=== PATIENT | female | born 1955 | race Caucasian/White ===

== ENCOUNTER → 2016-06-09 | Outpatient (CLI) | payer BC ==
[2015-12-21 08:16] VITALS: BP 140/71
[~2016-06-09] MED LIST: CALC500T50 PO; MULT1TAB49 PO; OMEG1CAP6 PO; SIMV20TA3 PO; SPIR25TA3 PO
--- NOTE | 2016-06-09 17:10 | KCIC ---
Diagnostic digital mammograms right breast: Reason for examination: Followup biopsy. COMPARISON Comparison is made to previous study dated 12/05/2015. FINDINGS Breast density category B. The skin and nipple show no abnormalities. No abnormal lymph nodes are seen in the axilla. The breast parenchyma shows scattered fibroglandular density. Biopsy clip is now present at the 9:30 position of the right breast and the area of mammographic concern appears to be less prominent. There are no new dominant masses, suspicious calcifications or architectural distortions. IMPRESSION Post biopsy changes in the 9:30 position of the right breast. Ultrasound to follow. This study was interpreted with the benefit of Computerized Aided Detection (CAD). Mammography is not 100% sensitive in detecting breast cancer. Therefore, a self breast exam and a clinical breast exam are very important. A negative mammogram does not negate a clinically suspicious finding and should not result in a delay in biopsying a clinically suspicious abnormality. BI-RADS category 0: Incomplete. Ultrasound to follow. Right breast ultrasound: Comparison is made to previous study dated 12/14/2015. There are postop biopsy changes at the 9 o'clock position 9 centimeters from the nipple with biopsy clip present and there nodularity appears to be less defined post biopsy. No new cystic or solid nodules are seen. Impression: Post biopsy changes at the 9 o'clock position. No new lesions seen. Recommend routine mammographic followup. BI-RADS category 2: Benign. This patient's information has been entered into a reminder system for the patient to be notified with the results of this examination and a target date for her next mammograms. Electronically signed by: Giselle Sanchez MD (Jun 09, 2016 17:08:02)
== END | disposition home or self-care (01) ==
LOC: KCIC MAMMO 11:38
PROVIDERS: ATTEND Internal Medicine
DX: R92.8 Other abnormal and inconclusive findings on diagnostic imaging of breast (principal)
CPT/HCPCS: 76641; G0206; 77065

== ENCOUNTER 2016-09-24 06:03 | Day surgery (SDC) | payer BC ==
[~2016-09-24] VITALS: Ht 162.6 cm; Wt 81.2 kg
[~2016-09-24 06:03] MED LIST changes: -CALC500T50 PO; +CALC500T54 PO
[2016-09-24] MEDS ORDERED: LIDOCAINE 1% 20 ML VIAL. ONE (06:59)
[2016-09-24] MEDS ORDERED: BUPIVACAINE 0.5% 50 ML VIAL. ONE (06:59)
[2016-09-24] MEDS ORDERED: fentaNYL PF VIAL 100 MCG/2 ML VIAL IV PRN (07:00)
[2016-09-24] MEDS ORDERED: MORPHINE SULFATE 2 MG/ML DISP.SYRIN. IV PRN (07:00)
[2016-09-24] MEDS ORDERED: PROCHLORPERAZINE 10 MG/2 ML VIAL. IV PRN (07:00)
[2016-09-24] MEDS ORDERED: LIDOCAINE 1% 1 ML SYRINGE. ID PRN (07:00)
[2016-09-24] MEDS ORDERED: IV RINGERS,LACTATED 1000ML 1,000 ML IV SCH (07:00)
[2016-09-24] MEDS ORDERED: HYDROmorphone 2 MG/ML VIAL IV PRN (07:00)
[2016-09-24] MEDS ORDERED: ONDANSETRON PF 4 MG/2 ML VIAL. IV PRN (07:00)
[2016-09-24] MEDS ORDERED: ONDANSETRON PF 4 MG/2 ML VIAL. ONE (07:04)
[2016-09-24] MEDS ORDERED: LIDOCAINE 2% PF Vial for OR 5 ML VIAL. ONE (07:04)
[2016-09-24] MEDS ORDERED: DEXAMETHASONE SOD PHOS 20 MG/5 ML VIAL. ONE (07:04)
[2016-09-24] MEDS ORDERED: PROPOFOL 20 ML IV ONE (07:04)
[2016-09-24] MEDS ORDERED: fentaNYL PF VIAL 100 MCG/2 ML VIAL ONE (07:05)
[2016-09-24] MEDS ORDERED: SEVOFLURANE UP TO 15 MINUTES. IH ONE (07:05)
[2016-09-24] MEDS ORDERED: MIDAZOLAM HCL/PF 2 MG/2 ML VIAL. ONE (07:05)
[2016-09-24] MEDS ORDERED: SPIR25TA PO (07:11)
[2016-09-24] MEDS ORDERED: OMEP20CA9 PO (07:12)
--- NOTE | 2016-09-24 07:49 | DISCH ---
DISCHARGE INSTRUCTIONS Condition on Discharge Condition on Discharge: Stable Activity After Discharge Activity Instructions for Disc: Other, see below Bathing Instructions: Shower-keep dressing dry Lifting Instructions after Dis: No heavy lifting, No pulling or pushing Weight Bearing Status after Di: As tolerated Diet after Discharge Diet after Discharge: Regular Wound Incision Care Wound/Incision Care: Ice to area for comfort, Keep wound/cast CDI, Keep wound elevated Other wound/incision instructi: ok to change dressing in 1 wk, keep incision covered w/ clean, dry dressing Contacting the DRMustapha after DC Call your doctor for: Concerns you may have Follow-Up Follow up with: Angel in 2wks DANA GRANDE II, MD Sep 24, 2016 07:49
--- NOTE | 2016-09-24 07:50 | PDOC ---
BRIEF OPERATIVE NOTE Date: Sep 24, 2016 Pre-Op Diagnosis R trigger thumb Post-Op Diagnosis same Procedure Performed open R trigger thumb release Surgeon Angel Anesthesiologist Rui Anesthesia Type: General Blood Loss 5mL Complications none DANA GRANDE II, MD Sep 24, 2016 07:50
[2016-09-24] MEDS: fentaNYL PF VIAL 100 MCG/2 ML VIAL IV PRN ×2 (08:12→08:26)
[2016-09-24] MEDS ORDERED: HYDR-971 PO (08:19)
[2016-09-24] MEDS ORDERED: HYDROcodone/APAP 5/325MG 1 TAB TABLET PO ONE (08:30)
--- NOTE | 2016-09-24 08:42 | OP ---
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 PREOPERATIVE DIAGNOSIS: Right trigger thumb. POSTOPERATIVE DIAGNOSIS: Right trigger thumb. PROCEDURE PERFORMED: Open right trigger thumb release. TOURNIQUET TIME: 10 minutes. ANESTHESIA: General. COMPLICATIONS: None. ESTIMATED BLOOD LOSS: 5 mL. REASON FOR PROCEDURE: The patient is a very pleasant 61-year-old female who has had painful catching and some occasional locking episodes at her right thumb for some time. We had discussed conservative therapies and had tried a steroid injection, which gave her some good initial, however, short term relief. We therefore had a discussion of the risks, benefits, alternatives of proceeding with the above surgery and she elected to proceed. DESCRIPTION OF PROCEDURE: The patient was greeted in the preoperative area where the correct digit was marked and identified. She was taken back to the operative suite and antibiotics were started en route. Once in the OR, she was transferred gently supine to the OR table and secured to the bed with all pressure points padded and had successful induction of general anesthesia. We then proceeded to prep and drape the right upper extremity in usual sterile fashion after applying a nonsterile tourniquet to her right arm. We then conducted a standard preoperative timeout. I then palpated and felt for her flexor tendon and the nodule, and then made an incision in the proximal thumb crease and incised skin with a scalpel. I used bipolar cautery to cauterize a couple of bleeders. I then used a mosquito to dissect through the subcutaneous tissue. I identified a digital nerve at the radial border of the flexor tendon and used a Ragnell to protect this. I then continued with my mosquito dissection, identified the A1 cesar and then used a Ragnell over this to expose this as well. I then incised the A1 cesar in its mid portion with the tenotomy scissors. I then took her thumb through range of motion and noted no impingement of the nodule. After this, the retractors were removed and the wound was irrigated out with sterile normal saline and then I closed the skin with 2 simple interrupted 3-0 nylon. We then placed Xeroform, sterile gauze, sterile cast padding and an Ferny wrap in a soft thumb spica splint fashion to her operative extremity. The tourniquet was then let down. She was awaked from anesthesia. She tolerated the surgery well. There were no complications. Prior to completion of wound closure, all counts were reported correct x 2. Postop plan is for her to avoid lifting anything with her right upper extremity. We will see her back in 2 weeks, sooner should problems arise. NABOR GRANDE MD DR: VEE/griselda JOB#: [id number] / [id number] ELYSSA
[2016-09-24 09:00] VITALS: BP 124/64
== END 2016-09-24 09:08 | disposition home or self-care (01) ==
LOC: SURG 06:03
PROVIDERS: ATTEND Orthopaedic Surgery Sports Medicine
DX: M65.311 Trigger thumb, right thumb (principal); E78.00 Pure hypercholesterolemia, unspecified; I10 Essential (primary) hypertension; K21.9 Gastro-esophageal reflux disease without esophagitis; Z72.89 Other problems related to lifestyle; Z87.39 Personal history of other diseases of the musculoskeletal system and connective tissue
CPT/HCPCS: 26055; A4215; J0690; J1100; J2250; J2405; J2704; J3010; J3490; J7120

== ENCOUNTER → 2016-12-05 | Outpatient (CLI) | payer BC ==
[~2016-12-05] MED LIST changes: +HYDR-971 PO; +OMEP20CA9 PO; +SPIR25TA PO
--- NOTE | 2016-12-05 09:05 | KCIC ---
Bone mineral density exam History: Osteopenia, loss of height, takes calcium supplement Comparison: 12/13/2013 Findings: Bone mineral density examination utilizing DEXA was performed. Left hip bone mineral density of 0.820 g/cm2 corresponds with a T score -1.0, Z score -0.1. Comparing the left hip, there has been -7.3% decrease. The bone mineral density of the lumbar spine was 0.931 g/cm2 which corresponds with a T-score of -1.1, Z score 0.3. Comparing the lumbar spine, there has been -3.7% decrease. By [employer] on Osteoporosis criteria, a T score of 0 to-1 SD is considered to be within normal limits. A T score of -1 to -2.5 SD is considered osteopenia. A T score less than -2.5 SD is considered osteoporosis Impression: 1. There is osteopenia of the lumbar spine. There is normal bone density although borderline osteopenia of the left hip. Electronically signed by: Aleks Mohr MD (12/05/2016 9:02 AM) [email or web address]
--- NOTE | 2016-12-06 08:00 | RAD ---
DATE: 12/06/2016 EXAM: MAMMO YULY SCREENING BILATERAL HISTORY: 61-year-old female for routine screening. History of right breast biopsy with benign pathology. COMPARISON: Previous mammograms from 2017, 2016 and 2014 This study was interpreted with the benefit of Computerized Aided Detection (CAD). FINDINGS: Breast Density: SCATTERED The breast parenchyma shows scattered fibroglandular densities. Breast parenchyma level B. Multiple round masses are seen in the right breast, stable dating back to 2014 mammogram. Postbiopsy changes are seen in the outer quadrant of the right breast at 9:00 position. Benign bilateral calcifications. No suspicious calcifications, architectural distortion or spiculated mass. IMPRESSION: Post biopsy changes in the right outer breast. No mammographic evidence of malignancy. Stable mammogram. BI-RADS CATEGORY: 2 BENIGN FINDING(S) RECOMMENDED FOLLOW-UP: 12M 12 MONTH FOLLOW-UP PQRS compliance statement: Patient information was entered into a reminder system with a target due date 12/06/2017 for the next mammogram. Mammography is a sensitive method for finding small breast cancers, but it does not detect them all and is not a substitute for careful clinical examination. A negative mammogram does not negate a clinically suspicious finding and should not result in delay in biopsying a clinically suspicious abnormality. "Our facility is accredited by the [employer] Mammography Program."
== END | disposition home or self-care (01) ==
LOC: KCIC DEXA 08:13
PROVIDERS: ATTEND Internal Medicine
DX: Z12.31 Encounter for screening mammogram for malignant neoplasm of breast (principal); N95.9 Unspecified menopausal and perimenopausal disorder; M85.88 Other specified disorders of bone density and structure, other site
CPT/HCPCS: 77063; 77080; G0202; 77067

== ENCOUNTER → 2018-01-22 | Outpatient (CLI) | payer BC ==
[~2018-01-22] MED LIST changes: -SPIR25TA3 PO; +SPIR25TA5 PO
--- NOTE | 2018-01-22 12:46 | KCIC ---
EXAM: Bilateral digital screening mammogram with tomosynthesis. HISTORY: 62-year-old female presents for screening mammography. TECHNIQUE: Full-field digital craniocaudal and mediolateral oblique 2D and 3D tomosynthesis images of both breasts are obtained for evaluation. Computer aided detection with TribridgeD software version 9.3 was applied. COMPARISON: 12/05/2016 and 06/09/2016 BREAST PARENCHYMAL DENSITY: Level B - Scattered fibroglandular densities. FINDINGS: There are small nodular densities within both breasts which are more conspicuous compared to the prior study, pronounced within the medial and lateral right breast and retroareolar left breast. There is no suspicious calcification or distortion within either breast. IMPRESSION: BI-RADS Category 0: Additional imaging needed. RECOMMENDATION: Further evaluation with bilateral breast sonogram is recommended to assess areas of increasing nodularity. If your mammogram demonstrates that you have dense breast tissue, which could hide abnormalities, and if you have other risk factors for breast cancer that have been identified, you might benefit from supplemental screening tests that may be suggested by your ordering physician. Dense breast tissue, in and of itself, is a relatively common condition. This information is not provided to cause undue concern, but rather to raise your awareness and to promote discussion with your physician regarding the presence of other risk factors, in addition to dense breast tissue. A report of your mammography results will be sent to you and your physician. You should contact your physician if you have any questions or concerns regarding this report. Mammography is a sensitive method for finding small breast cancers, but it does not detect them all and is not a substitute for careful clinical examination. A negative mammogram does not negate a clinically suspicious finding and should not result in delay in biopsying a clinically suspicious abnormality. PQRS compliance statement - Patient information was entered into a reminder system with a target due date for the next mammogram. "Our facility is accredited by the [employer] Mammography Program." Electronically signed by: Angélica Andino MD (01/22/2018 12:43 PM) [facility]
== END | disposition home or self-care (01) ==
LOC: KCIC MAMMO 11:31
PROVIDERS: ATTEND Internal Medicine
DX: Z12.31 Encounter for screening mammogram for malignant neoplasm of breast (principal)
CPT/HCPCS: 77063; 77067

== ENCOUNTER → 2018-02-12 | Outpatient (CLI) | payer BC ==
[~2018-02-12] MED LIST changes: +HYDR-3164 PO; -HYDR-971 PO
--- NOTE | 2018-02-12 09:01 | KCIC ---
EXAM: Bilateral breast sonogram. HISTORY: 62-year-old female presents for evaluation of nodularity within both breasts demonstrated on a mammogram dated 01/22/2018. TECHNIQUE: Sonographic imaging of both breasts including all 4 quadrants and the retroareolar lesion was performed. COMPARISON: 01/22/2018. FINDINGS: Sonographic imaging of the right breast demonstrates an 8.6 mm hypoechoic lesion with internal echoes at the 2:30 position 4 cm from the nipple, the appearance of which favors a complicated cyst or benign fibrocystic lesion. This demonstrates no blood flow or posterior shadowing. There is a partially circumscribed hypoechoic lesion at the 10:00 position 4 cm from the nipple measuring 9.5 mm. There is an adjacent biopsy clip. There is a biopsy clip within this location. Sonographic imaging of the left breast demonstrates no suspicious finding. There are few tiny focally dilated ducts. IMPRESSION: 1. 8.6 mm suspected complicated cyst or benign fibrocystic lesion at the 2:30 position of the right breast. 2. 9.5 mm partially circumscribed hypoechoic lesion with associated biopsy clip at the 10:00 position of the right breast. Given the presence of a biopsy clip in this location, this likely corresponds with the lesion of concern demonstrated on a prior sonogram dated 12/14/2015 at the 9:00 position. The differences in position or due to differences in imaging technique. 3. No suspicious finding within the left breast. 4. BI-RADS Category 3: Probably benign finding(s). Short term follow up with a diagnostic bilateral breast mammogram] breast sonogram in 6 months is recommended to confirm stability. Electronically signed by: Angélica Andino MD (02/12/2018 8:58 AM) [facility]
== END | disposition home or self-care (01) ==
LOC: KCIC US 07:53
PROVIDERS: ATTEND Internal Medicine
DX: N64.89 Other specified disorders of breast (principal)
CPT/HCPCS: 76641

== ENCOUNTER → 2018-08-12 | Outpatient (CLI) | payer BC ==
[~2018-08-12] MED LIST changes: +OMEP20CA10 PO; -OMEP20CA9 PO
--- NOTE | 2018-08-12 15:13 | KCIC ---
Bilateral diagnostic digital mammograms with 3-D tomosynthesis: Reason for examination: Follow-up nodules. Comparison is made to previous studies dated 01/22/2018 and 12/05/2016. Bilateral mammograms in CC and oblique projections were obtained with 2-D imaging and 3-D tomosynthesis imaging on a Siemens Inspiration unit and reviewed on the workstation. Interpretation was made with the benefit of CAD. The skin and nipples show no abnormalities. No abnormal axillary lymph nodes are seen. The breast parenchyma shows scattered fatty and fibroglandular density. (Breast density: Category B.) There continues be a small nodular density in the 10:00 position anteriorly in the right breast. There are also however additional small nodules at approximately the 12:00 and 2:00 positions in the right breast. There also appears to be some nodularity laterally in the left breast probably around the 3:00 B position. Further evaluation with ultrasound will follow. There are no suspicious calcifications. Impression: Small nodules bilaterally. Ultrasound to follow. BI-RADS Category 0: Incomplete. Needs additional imaging evaluation. Bilateral breast ultrasound: Comparison is made to previous study dated 02/12/2018. Bilateral whole breast ultrasound including evaluation of all 4 quadrants and the retroareolar and axillary regions of both breasts was performed. There continues to be 9 mm hypoechoic fibrocystic lesion at the 2:30 position 4 cm from the nipple which shows no significant change. There continues to be 6.9 mm cyst in the 10:00 position 4 cm from the nipple. There is a small 3.9 mm fibrocystic type lesion at the 12:30 position 4 cm from the nipple. No other cystic or solid lesions are seen. No abnormal appearing lymph nodes are seen in the axilla. In the left breast, there is a small cystic-appearing lesion in the 4:00 position 8 cm from the nipple measuring 8.8 mm in size. No other cystic or solid lesions are seen. No abnormal appearing lymph nodes are seen in the axilla. IMPRESSION: Continued presence of benign appearing cystic and fibrocystic type lesions bilaterally. No suspicious-appearing lesion seen. Recommend reevaluation with ultrasound in 6 months. BI-RADS Category 3: Probably Benign. "Our facility is accredited by the [employer] Mammography Program." This patient's information has been entered into a reminder system for the patient to be notified with the results of her examination and a target date for the next mammogram. Electronically signed by: Mary Sanchez MD (08/12/2018 3:11 PM) [facility]
== END | disposition home or self-care (01) ==
LOC: KCIC MAMMO 12:56
PROVIDERS: ATTEND Internal Medicine
DX: N63.12 Unspecified lump in the right breast, upper inner quadrant (principal); N63.20 Unspecified lump in the left breast, unspecified quadrant
CPT/HCPCS: 76641; 77066; G0279; 77062

== ENCOUNTER → 2019-02-14 | Outpatient (CLI) | payer BC ==
[~2019-02-14] MED LIST changes: +SIMV20TA18 PO; -SIMV20TA3 PO
--- NOTE | 2019-02-14 08:39 | KCIC ---
Bilateral breast ultrasound: Reason for examination: Follow-up nodules. Comparison is made to previous studies dated 08/12/2018 and 02/12/2018. Bilateral breast ultrasound including evaluation of the retroareolar and axillary regions of both breasts was performed. In the right breast at the 2:30 position 4 cm from the nipple, there continues to be 9.7 mm fibrocystic lesion. In the 10:00 position 4 cm from the nipple, there is a 9 mm circumscribed nodule probably representing a complicated cyst. In the 12:30 position 4 cm from the nipple, there is a small 3.6 mm fibrocystic lesion. These nodules show no significant change. No abnormal appearing lymph nodes are seen in the axilla. The left breast shows no discrete cystic or solid nodules. No abnormal appearing lymph nodes are seen in the left axilla. IMPRESSION: No significant change in small nodules in the right breast. No focal lesions in the left breast. Recommend routine mammographic follow-up. BI-RADS Category 2: Benign. "Our facility is accredited by the [employer] Mammography Program." This patient's information has been entered into a reminder system for the patient to be notified with the results of her examination and a target date for the next mammogram. Electronically signed by: Mary Sanchez MD (02/14/2019 8:36 AM) [facility]
== END | disposition home or self-care (01) ==
LOC: KCIC US 07:54
PROVIDERS: ATTEND Internal Medicine
DX: N63.11 Unspecified lump in the right breast, upper outer quadrant (principal); N64.89 Other specified disorders of breast
CPT/HCPCS: 76641

== ENCOUNTER → 2019-10-10 | Outpatient (CLI) | payer BC ==
[~2019-10-10] MED LIST changes: -OMEP20CA10 PO; +OMEP20CA16 PO
--- NOTE | 2019-10-10 17:23 | KCIC ---
Bilateral digital screening mammograms with 3-D tomosynthesis: Reason for examination: Routine screening. Comparison is made to previous studies dated back to 12/05/2015. Bilateral mammograms in CC and oblique projections were obtained with 2-D imaging and 3-D tomosynthesis imaging on a Siemens Inspiration unit and reviewed on the workstation. Interpretation was made with the benefit of CAD. The skin and nipples show no abnormalities. No abnormal axillary lymph nodes are seen. The breast parenchyma shows scattered fatty and fibroglandular density. (Breast density: Category B.) There are small benign-appearing nodules bilaterally which are stable. There are no new dominant masses, suspicious calcifications or architectural distortion. Impression: No evidence of malignancy. Recommend routine screening. BI-RAD Category 2: Benign. "Our facility is accredited by the [employer] Mammography Program." This patient's information has been entered into a reminder system for the patient to be notified with the results of her examination and a target date for the next mammogram. Electronically signed by: Mary Sanchez MD (10/10/2019 5:20 PM) [email or web address]
== END | disposition home or self-care (01) ==
LOC: KCIC MAMMO 15:33
PROVIDERS: ATTEND Internal Medicine
DX: Z12.31 Encounter for screening mammogram for malignant neoplasm of breast (principal)
CPT/HCPCS: 77063; 77067

== ENCOUNTER → 2020-10-12 | Outpatient (CLI) | payer BC ==
[~2020-10-12] MED LIST changes: -MULT1TAB49 PO; +MULT1TAB50 PO
--- NOTE | 2020-10-12 16:46 | KCIC ---
Bilateral digital screening mammograms with 3-D tomosynthesis: Reason for examination: Routine screening. Comparison is made to previous studies dated back to 12/04/2014. Bilateral mammograms in CC and oblique projections were obtained with 2-D imaging and 3-D tomosynthes is imaging on a Siemens Inspiration unit and reviewed on the workstation. Interpretation was made wit h the benefit of CAD. The skin and nipples show no abnormalities. No abnormal axillary lymph nodes are seen. The breast par enchyma shows scattered fatty and fibroglandular density. (Breast density: Category B.) There continu e to be small nodular parenchymal densities bilaterally which are stable. There are no new dominant m asses, suspicious calcifications or architectural distortion. Benign calcifications are present. Biop sy clip remains present on the right. Impression: No evidence of malignancy. Recommend routine screening. BI-RAD Category 2: Benign. "Our facility is accredited by the [employer] Mammography Program." This patient's information has been entered into a reminder system for the patient to be notified wit h the results of her examination and a target date for the next mammogram. Electronically signed by: Mary Sanchez MD (10/12/2020 4:43 PM) [email or web address]
== END ==
LOC: KCIC MAMMO 13:51
PROVIDERS: ATTEND Internal Medicine
DX: Z12.31 Encounter for screening mammogram for malignant neoplasm of breast (principal)
CPT/HCPCS: 77063; 77067

== ENCOUNTER → 2020-12-24 | Outpatient (CLI) | payer BC ==
[~2020-12-24] MED LIST changes: +METF500T16 PO; +TRAM50TA PO; +WARF2TAB96 PO
[2020-12-24 08:48] LABS: BASO # 0.1 x10^3/uL (0.0-0.2); BASO % 1 % (0-3); EOS # 0.1 x10^3/uL (0.0-0.7); EOS % 1 % (0-3); HEMATOCRIT 38.8 % (36.0-47.0); HEMOGLOBIN 13.2 g/dL (12.0-15.5); LYMPH # 2.1 x10^3/uL (1.0-4.8); LYMPH % 25 % (24-48); MEAN CORPUSCULAR HEMOGLOBIN 31 pg (25-35); MEAN CORPUSCULAR HGB CONC 34 g/dL (31-37); MEAN CORPUSCULAR VOLUME 91 fL (79-100); MONO # 0.5 x10^3/uL (0.0-1.1); MONO % 6 % (0-9); NEUT # 5.7 x10^3/uL (1.8-7.7); NEUT % 68 % (31-73); PLATELET COUNT 324 x10^3/uL (140-400); RED BLOOD COUNT 4.27 x10^6/uL (3.50-5.40); RED CELL DISTRIBUTION WIDTH 13.3 % (11.5-14.5); WHITE BLOOD COUNT 8.3 x10^3/uL (4.0-11.0)
[2020-12-24 08:57] LABS: ALBUMIN 3.8 g/dL (3.4-5.0); CALCIUM 9.4 mg/dL (8.5-10.1); CREATININE 0.9 mg/dL (0.6-1.0); GFR 63.2; POTASSIUM 4.3 mmol/L (3.5-5.1)
[2020-12-24 08:59] LABS: PROTHROMBIN TIME PATIENT 12.9 SEC (11.7-14.0)
--- NOTE | 2020-12-24 11:51 | EKG ---
[facility] [address] [place] [address] Test Date: 2020-12-24 Test Time: 11:48:52 Pat Name: MAXIMO SCHERER Department: Room: Gender: F [employer] Admissions Representative: MAHESH : 1955 Requested By: DAGOBERTO DENNEY Order Number: [id number] Reading MD: Joselito Martinez Measurements Intervals [place] Rate: 69 P: 37 NE: 154 QRS: 14 QRSD: 74 T: 30 QT: 368 QTc: 396 Interpretive Statements SINUS RHYTHM Electronically Signed On 12-25-2020 13:00:10 CDT by Joselito Martinez
--- NOTE | 2020-12-24 12:18 | RAD ---
EXAM: Chest, 2 views. HISTORY: Hypertension. COMPARISON: None. FINDINGS: 2 views of the chest are obtained. There is no infiltrate, pleural effusion or pneumothorax . The heart is normal in size. IMPRESSION: No acute pulmonary finding. Electronically signed by: Angélica Andino MD (12/24/2020 12:16 PM) [id number]
[2020-12-25 01:11] LABS: HEMOGLOBIN A1C 6.4 % (4.8-5.6)
== END ==
LOC: SURGPAT 12:03
PROVIDERS: ATTEND Orthopaedic Surgery
DX: Z01.818 Encounter for other preprocedural examination (principal); M17.12 Unilateral primary osteoarthritis, left knee
CPT/HCPCS: 36415; 71046; 80048; 82040; 82306; 83036; 85025; 85610; 85651; 85730; 87641; 93005

== ENCOUNTER 2021-01-08 07:37 | Observation (INO) | payer BC ==
[2020-12-26 11:42] VITALS: BP 146/85
[2021-01-08] VITALS (9 sets, daily range): BP systolic 107–135; BP diastolic 53–67
[~2021-01-08] VITALS: Ht 162.6 cm; Wt 86.3 kg
[~2021-01-08 07:37] MED LIST changes: +ACETAMINOPHEN 500 MG TABLET PO PRN; +GABAPENTIN 300 MG CAPSULE. PO ONE; +HYDROmorphone 2 MG/ML VIAL IVP PRN; +IV RINGERS,LACTATED 1000ML 1,000 ML IV SCH; +MELOXICAM 7.5 MG TABLET PO ONE; -METF500T16 PO; +MORPHINE SULFATE 2 MG/ML INJ. IVP PRN; +MORPHINE SULFATE 5 MG, KETOROLAC 30MG VIAL 30 MG, ROPIVacaine 0.5% PF 60 ML, EPINEPHrin... INT ART ONE; +PROCHLORPERAZINE 10 MG/2 ML VIAL. IVP PRN; -TRAM50TA PO; +TRANEXAMIC ACID in NS IVPB 50 ML INJ ONE; -WARF2TAB96 PO; +fentaNYL PF VIAL 100 MCG/2 ML VIAL IVP PRN
[2021-01-08] MEDS ORDERED: TRANEXAMIC ACID in NS IVPB 50 ML INJ ONE (08:00)
[2021-01-08] MEDS ORDERED: PROPOFOL 10 MG/ML (20ML) VIAL. IV ONE ×2 (08:03→09:42)
[2021-01-08] MEDS ORDERED: METF500T16 PO (08:03)
[2021-01-08] MEDS ORDERED: LIDOCAINE 2% PF 5 ML VIAL. ONE (08:03)
[2021-01-08] MEDS ORDERED: ONDANSETRON PF 4 MG/2 ML VIAL. ONE (08:05)
[2021-01-08] MEDS ORDERED: DEXAMETHASONE SOD PHOS 4 MG/ML VIAL ONE (08:05)
[2021-01-08] MEDS ORDERED: HYDROmorphone 2 MG/ML VIAL ONE (08:06)
[2021-01-08] MEDS ORDERED: TRANEXAMIC ACID in NS IVPB 50 ML ONE ×2 (08:06→08:07)
[2021-01-08] MEDS ORDERED: VANCOMYCIN 1 GM VIAL. ONE ×2 (08:06→08:07)
[2021-01-08] MEDS ORDERED: MORPHINE SULFATE 2 MG/ML INJ. IVP PRN (08:15)
[2021-01-08] MEDS ORDERED: ZOLPIDEM 5 MG TABLET. PO PRN (08:15)
[2021-01-08] MEDS ORDERED: diphenhydrAMINE 50 MG/ML VIAL IVP PRN (08:15)
[2021-01-08] MEDS ORDERED: SCOPOLAMINE 1.5MG PATCH. TD ONE (08:15)
[2021-01-08] MEDS ORDERED: INSULIN LISPRO 100 UNIT/ML 3ML VIAL for OP,RR ONLY. SQ PRN (08:15)
[2021-01-08] MEDS ORDERED: CALCIUM CARBONATE 500 MG TAB.CHEW PO PRN (08:15)
[2021-01-08] MEDS ORDERED: oxyCODONE IR 5 MG TABLET PO PRN (08:15)
[2021-01-08] MEDS ORDERED: PROCHLORPERAZINE 5 MG TABLET. PO PRN (08:15)
[2021-01-08] MEDS ORDERED: IV NORMAL SALINE 1000ML BAG 1,000 ML IV SCH (08:15)
[2021-01-08] MEDS ORDERED: 0.9 % SODIUM CHLORIDE 10 ML DISP.SYRIN. IV PRN (08:15)
[2021-01-08] MEDS ORDERED: DEXTROSE 50% 25 GM / 50ML DISP.SYRIN. IV PRN (08:15)
[2021-01-08] MEDS ORDERED: fentaNYL PF VIAL 100 MCG/2 ML VIAL IVP PRN (08:15)
--- NOTE | 2021-01-08 08:16 | PREOP HP ---
DATE OF SERVICE: 01/08/2021 PREOPERATIVE HISTORY AND PHYSICAL CHIEF COMPLAINT: Left knee pain, degenerative disease. HISTORY OF PRESENT ILLNESS: The patient is a 65-year-old female that has undergone longstanding nonoperative treatment for degenerative joint disease of the left knee. She is very limited on her activities of daily living, worse on startup and with increased activities. She had no relief with previous corticosteroid injections and is unable to take anti-inflammatories. PAST MEDICAL HISTORY: Significant for hypertension, depression, reflux disease, hyperlipidemia. PAST SURGICAL HISTORY: Trigger finger and ear surgeries. FAMILY HISTORY: Father of heart disease. Mother is alive and healthy. Some hypertension in other family members. SOCIAL HISTORY: Denies smoking or drug use. Social alcohol use. Lives with her spouse. MEDICATIONS: List is reviewed. ALLERGIES: She has no known drug allergies ASIDE FROM THE SENSITIVITY TO NONSTEROIDALS. REVIEW OF SYSTEMS: She denies any chest pain, shortness of breath, fever, chills or other constitutional symptoms or new medical issues since her last evaluation. PHYSICAL EXAMINATION: VITAL SIGNS: Per admission sheet. HEENT: Atraumatic, normocephalic. HEART: Regular rate and rhythm. LUNGS: Clear to auscultation bilaterally. ABDOMEN: Benign. EXTREMITIES: Examination of the left knee, she has medial joint line tenderness, varus and medial collateral ligament pseudolaxity with no ligamentous instability. She has mild patellofemoral crepitus and normal examination of the contralateral knee with slight patellofemoral crepitus. Normal alignment, stability, bilateral hips and ankles with intact motor function, distal pulses, sensation, reflexes, skin in both lower extremities throughout. DIAGNOSTIC DATA: X-rays show well maintained joint spaces on the right knee, severe medial compartment narrowing with nearly bone on bone on the left and a varus deformity. IMPRESSION: Primary osteoarthritis, left knee. TREATMENT PLAN: She has failed nonoperative alternatives and has severe limitations of her activities of daily living. We had talked through risks, benefits, postoperative course of total knee arthroplasty including the possibility of infection, nerve or blood vessel damage, medical or other anesthetic complications among others and she does wish to proceed with surgical evaluation and treatment which will include [facility] observation to follow. BARB DR: Fiona TID: [id number]
[2021-01-08 08:32] LABS: PROTHROMBIN TIME PATIENT 12.4 SEC (11.7-14.0)
[2021-01-08] MEDS ORDERED: SEVOFLURANE 61 TO 120 MINUTES. IH ONE (09:50)
[2021-01-08] MEDS: SENNOSIDES/DOCUSATE 8.6/50MG TABLET. PO SCH (10:00)
[2021-01-08] MEDS: MULTIVITAMIN with MINERAL TABLET. PO SCH (10:00)
[2021-01-08] MEDS ORDERED: INSULIN LISPRO 100 UNIT/ML 3ML VIAL for OP,RR ONLY. SQ ONE (11:40)
[2021-01-08] MEDS: ONDANSETRON PF 4 MG/2 ML VIAL. IVP SCH ×2 (12:00→17:50)
[2021-01-08] MEDS: ONDANSETRON ODT 4 MG TAB.RAPDIS. PO SCH ×2 (12:00→17:47)
--- NOTE | 2021-01-08 12:51 | RAD ---
XR KNEE_LT 1-2 VIEWS History: Postop Comparison: 06/29/2020 Technique: Portable AP and crosstable lateral views the left knee. FINDINGS/ IMPRESSION: Postsurgical features from left total knee arthroplasty. Distal femur and proximal tibial components appear well seated. Alignment is anatomic. No fractures identified. There is expected sub cutaneous air and edema. Electronically signed by: Brenton Ramirez MD (01/08/2021 12:49 PM) [id number]
--- NOTE | 2021-01-08 15:38 | PDOC4 ---
Operative Note Operative Note Date of surgery: 01/08/2021 Preoperative diagnosis: Degenerative arthritis left knee Postoperative diagnosis: Same Operative procedure: Left total knee arthroplasty Surgeon: Bernice Assist: Graham rand Anesthesia: General Estimated blood loss: 15 cc Complications: None Specimens: Cartilage surfaces to pathology Operative indications: Please see my dictated preoperative history and physical for detailed operative indications and note that we had reviewed preoperatively risks benefits postoperative course of the surgery including the possibility of infection continued pain nerve or blood vessel damage premature wear or loosening instability medical or other anesthetic complications among others and she agrees to proceed with surgical evaluation and treatment having given informed consent Operative text: Patient was identified procedure verified patient placed in the supine position on the operating table. After adequate amounts of general anesthesia were administered the left lower extremity was prepped and draped in standard sterile fashion with a thigh tourniquet and after timeout was performed patient procedure identified and verified the left lower extremity was exsanguin ated by Esmarch bandage tourniquet inflated to 300 mmHg and a midline incision was made followed by a medial parapatellar approach fat pad was excised and patella everted and the distal femur drilled to accommodate the intramedullary cutting guide which was set at 5 degrees with standard distal cut. A tibial cut was made using the extra medullary cutting guide aligned with the second toe and alignment verified. Balancing was confirmed with the drop kenny and noted in both flexion and extension, tibia was prepared with a size C persona trial component. Femur was sized at a size 4 and AP lateral chamfer cuts were made and ligament balancing carried out. A medial release was carried out and I did achieve excellent stability with a 11 mm trial medial congruent articular surface spacer. Femoral lug holes were drilled and patella was not resurfaced. She had excellent tracking. Trial components were removed thorough irrigation carried out with normal saline solution and the following persona components were cemented in place with polymethylmethacrylate cement: A size C persona natural tibial component and size 4 standard right persona cruciate retaining femur. Excess cement was removed with a curette and a vitamin E medial congruent 11 mm height articular spacer was locked into place and the knee held into extension until cement was dry. Irrigation again carried out with dilute Betadine lavage and normal saline solution and 1 g vancomycin was placed in the knee joint. Retinaculum closed with #1 PDS suture in a running fashion subcutaneous closure with buried Vicryl sutures subcuticular closure with 3-0 strata fix Monocryl. A colette dressing was placed. Toes were noted to be warm pink following deflation of the tourniquet patient was returned to recovery room in stable condition having tolerated procedure well. Graham rand was present for the procedure and assisted in patient positioning prepping draping retraction closure dressings. DAGOBERTO DENNEY MD Jan 08, 2021 15:38
[2021-01-08] MEDS ORDERED: WARFARIN 7.5 MG TABLET. PO ONE (16:00)
--- NOTE | 2021-01-08 16:35 | NUR ---
Arrived to unit by tegan from PACU. Transferred to bed with assist x's 2. No c/o. Left leg dressing d/i with colette box flashing green. Ice pack on knee. Able to wiggle toes easily, warm to touch. IVF's intact and infusing. O2 at 2l per n/c. EDDI's and PATRICK's on bilaterally. Side rails up x's 2 with call light in reach. Spouse at bedside. Cont. monitor.
[2021-01-08] MEDS: FERROUS SULFATE 325 MG TABLET. PO SCH (17:46)
[2021-01-08] MEDS: metFORMIN 500 MG TABLET PO SCH (19:00)
[2021-01-09 03:00] VITALS: BP 118/42
[2021-01-09] MEDS: ONDANSETRON PF 4 MG/2 ML VIAL. IVP SCH ×2 (05:09)
[2021-01-09] MEDS: ONDANSETRON ODT 4 MG TAB.RAPDIS. PO SCH ×2 (05:12)
[2021-01-09] MEDS ORDERED: MAGNESIUM HYDROXIDE 2,400 MG/30 ML ORAL.SUSP. PO PRN (06:00)
[2021-01-09] MEDS ORDERED: GABAPENTIN 100 MG CAPSULE. PO SCH (06:00)
[2021-01-09] MEDS: PANTOPRAZOLE 40 MG TABLET.DR. PO SCH (06:10)
[2021-01-09] MEDS: traMADol 50 MG TABLET PO SCH ×3 (06:10→18:16)
[2021-01-09 07:00] VITALS: BP 121/47
[2021-01-09] MEDS: MULTIVITAMIN with MINERAL TABLET. PO SCH (08:32)
[2021-01-09] MEDS: SENNOSIDES/DOCUSATE 8.6/50MG TABLET. PO SCH (08:32)
[2021-01-09] MEDS: SIMVASTATIN 20 MG TABLET PO SCH (08:32)
[2021-01-09] MEDS: ACETAMINOPHEN 500 MG TABLET PO SCH ×3 (08:33→20:55)
[2021-01-09] MEDS: FERROUS SULFATE 325 MG TABLET. PO SCH ×2 (08:33→18:20)
[2021-01-09] MEDS: MELOXICAM 7.5 MG TABLET PO SCH (08:33)
[2021-01-09] MEDS: metFORMIN 500 MG TABLET PO SCH ×2 (08:34→18:16)
[2021-01-09] MEDS: SPIRONOLACTONE 25 MG TABLET PO SCH (09:00)
[2021-01-09 09:36] LABS: PROTHROMBIN TIME PATIENT 14.4 SEC (11.7-14.0)
[2021-01-09 09:38] LABS: HEMATOCRIT 34.5 % (36.0-47.0); HEMOGLOBIN 11.4 g/dL (12.0-15.5)
--- NOTE | 2021-01-09 10:33 | NUR ---
Pharmacy Warfarin Dosing Note S:Pharmacy consulted to assist with anticoagulation therapy started 01/08/21 with target INR: 1.6 - 2.5 O:MAXIOM SCHERER is a 65 year old F with TKA LABS: Last INR: 1.1 Last HGB: 11.4 Last HCT: 34.5 Last PLT: Last dose of 7.5 mg given on 01/08/21 at 1747 Previous Regimen: Vitamin K given: N Drug Interaction Changes: Ongoing Drug Interactions: A:INR of 1.1 is below desired range. Target range for this patient is: 1.6 - 2.5. P: Warfarin dose: 5 mg Today at 1600. Bridge Therapy: None Next INR due tomorrow. Pharmacy anticoagulation service will continue to follow. Sourav Hobson [facility], 01/09/21 [id number]
[2021-01-09] MEDS ORDERED: ONDANSETRON ODT 4 MG TAB.RAPDIS. PO PRN (12:00)
[2021-01-09] MEDS ORDERED: ONDANSETRON PF 4 MG/2 ML VIAL. IVP PRN (12:00)
[2021-01-09 15:00] VITALS: BP 127/49
[2021-01-09] MEDS ORDERED: BISACODYL 10 MG SUPP.RECT. PR PRN (16:00)
[2021-01-09] MEDS ORDERED: WARFARIN 5 MG TABLET. PO ONE (16:00)
--- NOTE | 2021-01-09 17:51 | PDOC ---
PROGRESS NOTES Date of Service DATE: 01/09/21 TIME: 17:49 Subjective Subjective Problems overnight: Doing well, overall soreness but pain reasonably controlled Objective Vital Signs Vital Signs Date Time Temp Pulse Resp B/P (MAP) Pulse Ox O2 Delivery O2 Flow Rate FiO2 01/09/21 15:00 98.0 74 16 127/49 (75) 98 Room Air 2.0 98.0 Physical Exam Alfred dressing clean dry intact good early range of motion stability patellofemoral tracking intact distal neurovascular status Labs Laboratory Tests Test 01/08/21 08:02 01/08/21 08:10 01/08/21 10:06 01/08/21 11:31 Glucose (Fingerstick) 120 mg/dL (70-99) 114 mg/dL (70-99) 142 mg/dL (70-99) Prothrombin Time 12.4 SEC (11.7-14.0) Prothromb Time International Ratio 0.9 (0.8-1.1) Activated Partial Thromboplast Time 30 SEC (24-38) Test 01/08/21 13:36 01/09/21 05:50 Glucose (Fingerstick) 119 mg/dL (70-99) Hemoglobin 11.4 g/dL (12.0-15.5) Hematocrit 34.5 % (36.0-47.0) Mean Corpuscular Hemoglobin Concent 33 g/dL (31-37) Prothrombin Time 14.4 SEC (11.7-14.0) Prothromb Time International Ratio 1.1 (0.8-1.1) Laboratory Tests Test 01/09/21 05:50 Hemoglobin 11.4 g/dL (12.0-15.5) Hematocrit 34.5 % (36.0-47.0) Mean Corpuscular Hemoglobin Concent 33 g/dL (31-37) Prothrombin Time 14.4 SEC (11.7-14.0) Prothromb Time International Ratio 1.1 (0.8-1.1) Imaging Postop x-rays show excellent alignment total knee arthroplasty Assessment Assessment POD#1 left total knee arthroplasty Plan Plan of Care Continue mobilize with physical therapy Warfarin per pharmacy Likely home with home health or outpatient physical therapy depending on progress Justicifation of Admission Dx: Justifications for Admission: Justification of Admission Dx: N/A DAGOBERTO DENNEY MD Jan 09, 2021 17:51
[2021-01-09 19:00] VITALS: BP 133/38
[2021-01-09 23:00] VITALS: BP 124/46
[2021-01-10] MEDS: traMADol 50 MG TABLET PO SCH ×3 (00:17→13:11)
[2021-01-10 03:00] VITALS: BP 101/49
[2021-01-10] MEDS: ACETAMINOPHEN 500 MG TABLET PO SCH ×3 (03:00→15:00)
[2021-01-10] MEDS: PANTOPRAZOLE 40 MG TABLET.DR. PO SCH (06:10)
[2021-01-10 07:00] VITALS: BP 115/46
[2021-01-10 07:05] LABS: PROTHROMBIN TIME PATIENT 19.8 SEC (11.7-14.0)
--- NOTE | 2021-01-10 08:00 | NUR ---
sitting up in recliner. states that her pain is an 2-3. she comfortable with the tramadol. dressing to left knee has very scant drainage. ready to go home today
[2021-01-10] MEDS: metFORMIN 500 MG TABLET PO SCH (08:45)
[2021-01-10] MEDS: SENNOSIDES/DOCUSATE 8.6/50MG TABLET. PO SCH (08:45)
[2021-01-10] MEDS: SPIRONOLACTONE 25 MG TABLET PO SCH (08:45)
[2021-01-10] MEDS: FERROUS SULFATE 325 MG TABLET. PO SCH (08:45)
[2021-01-10] MEDS: MULTIVITAMIN with MINERAL TABLET. PO SCH (08:45)
[2021-01-10] MEDS: MELOXICAM 7.5 MG TABLET PO SCH (08:46)
[2021-01-10] MEDS: SIMVASTATIN 20 MG TABLET PO SCH (08:49)
--- NOTE | 2021-01-10 08:54 | DISCH ---
DISCHARGE INSTRUCTIONS Condition on Discharge Condition on Discharge: Stable Activity After Discharge Activity Instructions for Disc: Progressive ambulation Bathing Instructions: Shower-keep dressing dry Weight Bearing Status after Di: As tolerated Diet after Discharge Diet after Discharge: Regular Wound Incision Care Wound/Incision Care: Ice to area for comfort, Do not change dressing (Maintain colette dressing, call if saturated, otherwise when suction machine stops at 1 week cut tail of drain and tape over to maintain seal) Community/Resources/Services Services at Discharge: PT EVALUATE & TREAT Contacting the after DC Call your doctor for: Concerns you may have Follow-Up Follow up with: Dr. Queen or Donna 2 weeks postop Warfarin Follow-Up Warfarin Follow UP: [facility] to direct warfarin dosage and testing DAGOBERTO QUEEN MD Jan 10, 2021 08:54
[2021-01-10] MEDS ORDERED: TRAM50TA PO (09:04)
[2021-01-10 09:33] LABS: HEMATOCRIT 32.4 % (36.0-47.0); HEMOGLOBIN 10.8 g/dL (12.0-15.5)
--- NOTE | 2021-01-10 10:09 | NUR ---
Pharmacy Warfarin Dosing Note S: Pharmacy consulted to assist with anticoagulation therapy started 01/08/21 O: MAXIMO SCHERER is a 65 year old F with TKA LABS: Last INR: 1.7 Last HGB: 10.8 Last HCT: 32.4 Last PLT: - Last dose of 5 mg given on 01/09/21 at 1557 Vitamin K given: N Ongoing Drug Interactions: A:INR of 1.7 is within desired range. Target range for this patient is: 1.6 - 2.5 P: Warfarin dose: 2 mg Today at 1600 Bridge Therapy: None Next INR due tomorrow Pharmacy anticoagulation service will continue to follow. Nayana Garcia RPH, 01/10/21 [id number]
[2021-01-10] MEDS ORDERED: WARF2TAB96 PO (10:53)
[2021-01-10 11:56] VITALS: BP 117/55
--- NOTE | 2021-01-10 12:30 | NUR ---
resting in recliner with feet elevated and ice on the knee. she continues to rate her pain 2-3. reviewed orally discharge instructions with her. she was given her follow up appt with Dr. Queen. pharmacy here to answer questions about Coumadin and given the medication.
[2021-01-10] MEDS ORDERED: WARFARIN 2 MG TABLET. PO ONE (14:00)
--- NOTE | 2021-01-10 15:00 | NUR ---
reviewed written discharge instructions. reviewed the Lala dressing instructions, follow up with Dr. Queen and time. reviewed restrictions to activities of daily living such as bathing driving and reviewed her medications. all questions answered. at bedside. Addendum: 01/10/21 at 1538 by URBAN URBINA RN dismissed to home with outpatient therapy. 1st appt tomorrow am and given the script.
--- NOTE | 2021-01-12 10:27 | DS ---
DATE OF DISCHARGE: 01/10/2021 PRINCIPAL DIAGNOSIS: Degenerative joint disease, left knee. PROCEDURE: Left total knee arthroplasty. DISPOSITION: Home with outpatient physical therapy. MEDICATIONS: Tramadol 50 mg p.o. q. 4 hours p.r.n. pain; warfarin per [facility], current dose is 2 mg daily. Also, continue metformin, multivitamin, omeprazole, simvastatin, spironolactone and stop fish oil. Activity is weightbearing as tolerated. Maintain SUSAN dressing. Call if saturated, otherwise remove suction when box stops working at 1 week postop and cut tail of drain and tape over to maintain seal. Follow up with Dr. Queen or Dr. Thompson 2 weeks postop and also follow up with outpatient physical therapy at [facility] and warfarin dosage and testing to be provided by [facility]. BRIEF DESCRIPTION OF HOSPITAL COURSE: The patient underwent uncomplicated left total knee arthroplasty. Postoperatively, overall remained medically stable. Achieved best pain control with tramadol and functioned reasonably well in her activities of daily living and ambulation and was discharged to home in stable condition. BERENICE/FAINA/TIMOTHY DR: BERENICE/griselda TID: [id number]
== END 2021-01-10 15:10 | disposition home or self-care (01) ==
LOC: SURG 07:37 → 4 NORTH 08:04
PROVIDERS: ADMIT Orthopaedic Surgery; ATTEND Orthopaedic Surgery
DX: M17.12 Unilateral primary osteoarthritis, left knee (principal); E78.5 Hyperlipidemia, unspecified; I10 Essential (primary) hypertension; F32.9 Major depressive disorder, single episode, unspecified; K21.9 Gastro-esophageal reflux disease without esophagitis; Z82.49 Family history of ischemic heart disease and other diseases of the circulatory system; Z96.652 Presence of left artificial knee joint; Z98.890 Other specified postprocedural states
CPT/HCPCS: 27447; 36415; 73560; 82962; 85014; 85018; 85610; 85730; 86850; 86900; 86901; 96365; 96366; 96376; 97116; 97150; 97162; 97166; 97530; 97535; A4213; A4930; A6258; A6450; A6550; C1713; C1755; C1776; G0378; G0379; J0171; J0690; J1100; J1170; J1815; J1885; J2270; J2405; J2704; J2795; J3370; A4223